=== PATIENT | female | born 1995 | race Caucasian/White ===

== ENCOUNTER 2018-01-09 09:52 | Day surgery (SDC) | payer MEDICAID, SELFPAY ==
[2018-01-09 10:28] VITALS: BP 134/62; PULSE 87; RESP 14; TEMP 36.9; O2SAT 99; BMI 29.9
[2018-01-09 10:53] LABS: Hematocrit 33.8 % (37-47); Hemoglobin 11.4 g/dl (12.0-15.0); Mean Corp Hgb Conc 33.7 g/gl (32-36); Mean Corpuscular Hgb 30.3 pg (27.0-32.0); Mean Corpuscular Volume 89.9 fL (81-99); Mean Platelet Vol. 9.5 fl (6.2-12.0); Platelet Count 266 K/mm3 (150-450); RBC Distribution Width CV 12.6 % (11.6-14.6); RBC Distribution Width SD 40.6 fl (35.1-43.9); Red Blood Count 3.76 M/mm3 (4.2-5.4); White Blood Count 6.9 K/mm3 (4.4-11.0)
[2018-01-09 10:56] LABS: Scan Indicated on CBC? Y/N NO
[2018-01-09] MEDS: Doxycycline 100 MG CAPSULE PO (11:09)
--- NOTE | 2018-01-09 12:00 | POC_PTH ---
PATIENT: GRIFFIN COLÓN LOC: [facility] [place] U#:[id number] AGE/SX: 22/ ROOM: RE01/09/[address]: Dr. Veronica Brooks, MDDOB: 1995 BED: DIS: 01/09/2018 SPEC #: [id number] RECD: 01/09/18 13:07 STATUS: ARMIDA ALEXANDRA #: [id number] JOSE F: 01/09/18 12:[address]: Veronica Brooks DEPT: SURGICAL PATHOLOGY RECD BY: Jones Dennis ENTERED: 01/09/18 14:03 SP TYPE: PROD CONC OTHR DR: No Primary Care Phys Tissues: Product of conception, NOS Procedures: Surgery Specimen Level IV HEADER OPERATION: Dilation and curettage, suction PRE-OP DIAGNOSIS: Molar , retained products TISSUE SUBMITTED: Products of conception MICROSCOPIC DIAGNOSIS Endometrium, curettings: Chorionic villi with autolytic changes consistent with products of conception. Fragments of endometrium with mild chronic endometritis. AM:tacos 01/10/18 MICROSCOPIC DESCRIPTION Slides are reviewed. GROSS DESCRIPTION Received in fixative is one container labeled with the patient's name and designated products of conception. The specimen consists of multiple irregular fragments of pink-red soft tissue mixed with mucoid tissue that in aggregate measure 3 x 2.5 x 0.3 cm. The entire specimen is submitted in one cassette. / SJ:tacos 01/09/18 TC:3 CPT: 17887
--- NOTE | 2018-01-09 12:32 | PCM.OP.BLANK ---
Operative Report Date of Procedure: 01/09/18 Surgeon: Dr. Veronica Brooks Stage Electrician Helper: None Pre op Diagnosis: MOLAR , RETAINED POC Post OP Diagnosis: same Surgery Performed: Hysteroscopy, D&C Findings: small amount of tissue evacuated using 7mm suction catheter Complications: none EBL: minimal Operative Note: After informed consent was obtained patient was taken to OR and placed in supine position. Anesthesia was given. patient was placed in yellow fin stirrups and prepped and draped in normal sterile fashion. bladder was drained with straight catheter with approximately 100 of clear yellow urine expelled. Exam under anesthesia reviewed normal sized uterus with no adnexal masses uterus anteverted. Weighted speculum placed in posterior fornix of vaginal, single tooth tenaculum was used to gently grasped anterior lip of cervix. Cervix was gently dilated in an incremental fashion. Was adequate dilation was achieved the 7mm suction catheter was used. Small amount of tissue removed without complication. at this time a very gentle sharp curettage was performed which yielded no other tissue. The tissue was then sent to pathology for examination. no complications. At this time procedure was deemed complete and successful. Tenaculum removed, speculum removed. Good hemostasis appreciated. Vaginal sweep was negative. Instrument and lap count correct x 2. I anticipate normal postoperative course.
--- NOTE | 2018-01-09 12:35 | PCM.DC.D&C ---
Discharge Diet: No Restrictions Discharge Activity: Return to Normal Activity, May Shower, May Take a Tub Bath - in 2 weeks. Allergies/Adverse Reactions: Allergies No Known Allergies Allergy (Verified 01/09/18 10:20) Medications to take at Discharge Melatonin 3 mg PO QHS 01/09/18 Primary Care Physician: Care Physician,No Primary [Primary Care Provider] -
[2018-01-09 12:42] VITALS: BP 116/78; BP 134/62; PULSE 96; RESP 14; TEMP 36.9; O2SAT 96
[2018-01-09 12:47] VITALS: BP 106/72; BP 134/62; PULSE 82; RESP 16; O2SAT 99
[2018-01-09 12:52] VITALS: BP 117/68; BP 134/62; PULSE 82; RESP 16; O2SAT 95
[2018-01-09 12:57] VITALS: BP 111/74; BP 123/74; BP 134/62; PULSE 75; PULSE 76; RESP 16; TEMP 36.6; O2SAT 95
[2018-01-09 14:22] VITALS: BP 134/62
== END 2018-01-09 14:35 | disposition home or self-care (01) ==
LOC: SDC 10:01 → AC 10:03
PROVIDERS: Visit Provider Obstetrics & Gynecology
PROC: (CPT 59812; principal; 2018-01-09 11:45)
DX: O02.0 Blighted ovum and nonhydatidiform mole (principal); O08.1 Delayed or excessive hemorrhage following ectopic and molar pregnancy; O08.0 Genital tract and pelvic infection following ectopic and molar pregnancy; N71.1 Chronic inflammatory disease of uterus; Z87.891 Personal history of nicotine dependence
CPT/HCPCS: 01965; 59812; 85027; 88305; J3010; J7120; J2405

== ENCOUNTER 2019-03-11 11:50 | Outpatient (CLI) | payer MEDICAID, SELFPAY ==
[2019-03-11] MEDS: Lactated Ringers 1,000 ML 999 ML IV (12:00)
[2019-03-11 12:18] VITALS: BMI 32.5
[2019-03-11] MEDS: Ondansetron 4 MG/2 ML Vial IV (12:44)
--- NOTE | 2019-03-14 07:51 | OB.TRI.NOTE ---
- Problem List (1) 36 weeks gestation of Status: Acute (2) Nausea & vomiting Status: Acute (3) Diarrhea Status: Acute History of Present Illness Date of Service: 03/11/19 Was patient seen by the physician?: No Reason For Visit: N/V/D Date of Service: 03/11/19 Final BUNNY: 04/12/19 Gestational age: 35 Weeks and 6 Days History of Present Illness: who presents at 36w4d with nausea, vomiting, diarrhea. +Sick contacts with GI gastroenteritis. No OB complaints Allergies No Known Allergies Allergy (Verified 01/09/18 10:20) NST - FHR Rate Baby A Baseline: 135 Variability:: Moderate Accelerations:: 15 x 15 Decelerations:: None - Patient was sitting up with emesis 12:00 and 12:10 NST Reactive:: Yes FHR Category:: Category I Uterine Activity:: Quiet Impression/Plan NST reactive Patient give IV Zofran and 1 L IVF bolus. Pt feeling improved. Discharged home with Zofran prn
== END 2019-03-11 13:39 | disposition home or self-care (01) ==
LOC: WPOUT 12:07 → WP 03-12 10:48
PROVIDERS: Visit Provider Obstetrics & Gynecology
DX: O21.2 Late vomiting of pregnancy (principal); O99.89 Other specified diseases and conditions complicating pregnancy, childbirth and the puerperium; R19.7 Diarrhea, unspecified; Z3A.36 36 weeks gestation of pregnancy
CPT/HCPCS: 96361; 96374; 59025; 59050; 99218; J7120; G0378; J2405

== ENCOUNTER 2019-03-28 06:52 | Inpatient (IN) | payer MEDICAID, SELFPAY ==
[2019-03-28 07:49] VITALS: BMI 33.5
[2019-03-28] MEDS: Lactated Ringers 1,000 ML 50 ML IV ×4 (08:10→20:28)
[2019-03-28] MEDS: Oxytocin 30 units/NS 500 ml 30 UNITS/500 ML IV.SOLN IV (08:19)
[2019-03-28] MEDS: 0.9% Normal Saline 100 ML IV.SOLN. INTRA-UTER (08:20)
[2019-03-28 08:23] LABS: Absolute Lymphocyte Count 2.37 X10^3/ul (0.83-4.51); Absolute Neutrophil Count 4.7 X10^3/uL (2.0-7.7); Basophil# 0.01 X10^3/uL; Basophil% 0.1 % (0-1); Eosinophil# 0.14 X10^3/uL; Eosinophils% 1.8 % (0-5); Hematocrit 30.4 % (37-47); Hemoglobin 10.4 g/dl (12.0-15.0); Lymphocyte # 2.37 X10^3/ul (4.0); Lymphocyte % 29.8 % (19-41); Mean Corp Hgb Conc 34.2 g/gl (32-36); Mean Corpuscular Hgb 30.3 pg (27.0-32.0); Mean Corpuscular Volume 88.6 fL (81-99); Mean Platelet Vol. 11.3 fl (6.2-12.0); Monocyte# 0.72 X10^3/uL; Monocyte% 9.1 % (0-10); Neutrophil # 4.68 X10^3/uL (2.7-7.7); Neutrophil % 58.8 % (47-70); Platelet Count 219 K/mm3 (150-450); RBC Distribution Width CV 13.1 % (11.6-14.6); RBC Distribution Width SD 39.8 fl (35.1-43.9); Red Blood Count 3.43 M/mm3 (4.2-5.4)
[2019-03-28 08:25] LABS: POSITIVE COUNT NO; POSITIVE DIFFERENTIAL NO; POSITIVE MORPHOLOGY NO
--- NOTE | 2019-03-28 08:35 | PCM.HP.OB ---
- Problem List (1) Encounter for induction of labor Status: Acute (2) History of molar Status: Acute (3) History of pre-eclampsia Status: Acute (4) Obesity affecting Status: Acute History Date of Admission: 03/28/19 Final BUNNY: 04/04/19 Gestational age: 39 Weeks and 0 Days History of this : This is a 23 year-old, G [6], P [3113], at 39 weeks gestational age. Presents for elective induction of labor due to maternal discomfort. No signs of labor upon admission. Allergies No Known Allergies Allergy (Verified 03/28/19 07:50) Home Medications: Home Medications Gummies 2 tab PO DAILY 03/28/19 Smoking Status: Former smoker Alcohol: None Heart Tracin, moderate variability, accels, no decels, Category 1 TOCO Analysis: No contractions. History Past Pregnancies: Past Pregnancies Delivery Date Name GA/Weeks Outcome Route Weight Infant Gender Labor Length Anesthesia Delivery Location Provider FOB Labs: GBS negative HIV negative 1hr GCT 112 normal Urine tox screen negative RPR negative Rubella immune HBsAG negative A positive GC/CT negative Review of Systems Constitutional: Denies: Chills, Fever, Weight Change Eyes: Denies: Blurred vision Cardiovascular: Denies: Chest Pain, Palpitations Respiratory: Denies: Cough, Shortness of breath at rest, Sputum production Gastrointestinal: Denies: Abdominal Pain, Nausea, Vomiting Genitourinary: Denies: Dysuria Psychiatric: Denies: Anxiety, Depression, Homicidal Ideations, Suicidal Ideations Physical Exam General: Alert, Oriented x3, No apparent distress HEENT: Atraumatic, Normocephalic Cardiovascular: Regular rate, Regular Rhythm, No murmurs Lungs: Clear to auscultation, Normal air movement, No rhonchi, No wheeze Abdomen: Bowel Sounds Present, Gravid Extremities:: No edema Neurological: Negative for: Deep Tendon Reflexes 2+/4 and Symmetrical, Clonus EXERCISE PHYSIOLOGY PROFESSOR: Normal external genitalia Estimated gestational size: Appropriate for gestational size Presentation: Cephalic Cervix Dilation (cm): 2 - Latex free mcmanus catheter inserted into cervical os without complications. Instilled with 30 ml of NS Station: -1 Effacement (%): 70 Assessment/Plan All Active Problems 36 weeks gestation of (Acute) Nausea & vomiting (Acute) Diarrhea (Acute) Encounter for induction of labor (Acute) History of molar (Acute) History of pre-eclampsia (Acute) Obesity affecting (Acute) This is a 23 year-old, G [6], P [1443], at 39 weeks gestational age for induction of labor A:Category 1 FHT P: 1) Admit to L&D. IV and routine labs 2) Continuous EFM 3) Mcmanus catheter for cervical ripening. Pitocin per policy 4) collaborative physician. 5) Planning epidural for pain management.
--- NOTE | 2019-03-28 08:39 | HP.PCM_ITS ---
- Problem List (1) Encounter for induction of labor Status: Acute (2) History of molar Status: Acute (3) History of pre-eclampsia Status: Acute (4) Obesity affecting Status: Acute History Date of Admission: 03/28/19 Final BUNNY: 04/04/19 Gestational age: 39 Weeks and 0 Days History of this : This is a 23 year-old, G [6], P [3113], at 39 weeks gestational age. Presents for elective induction of labor due to maternal discomfort. No signs of labor upon admission. Allergies No Known Allergies Allergy (Verified 03/28/19 07:50) Home Medications: Home Medications Gummies 2 tab PO DAILY 03/28/19 Smoking Status: Former smoker Alcohol: None Heart Tracin, moderate variability, accels, no decels, Category 1 TOCO Analysis: No contractions. History Past Pregnancies: Past Pregnancies Delivery Date Name GA/Weeks Outcome Route Weight Infant Gender Labor Length Anesthesia Delivery Location Provider FOB Labs: GBS negative HIV negative 1hr GCT 112 normal Urine tox screen negative RPR negative Rubella immune HBsAG negative A positive GC/CT negative Review of Systems Constitutional: Denies: Chills, Fever, Weight Change Eyes: Denies: Blurred vision Cardiovascular: Denies: Chest Pain, Palpitations Respiratory: Denies: Cough, Shortness of breath at rest, Sputum production Gastrointestinal: Denies: Abdominal Pain, Nausea, Vomiting Genitourinary: Denies: Dysuria Psychiatric: Denies: Anxiety, Depression, Homicidal Ideations, Suicidal Ideations Physical Exam General: Alert, Oriented x3, No apparent distress HEENT: Atraumatic, Normocephalic Cardiovascular: Regular rate, Regular Rhythm, No murmurs Lungs: Clear to auscultation, Normal air movement, No rhonchi, No wheeze Abdomen: Bowel Sounds Present, Gravid Extremities:: No edema Neurological: Negative for: Deep Tendon Reflexes 2+/4 and Symmetrical, Clonus SALESFORCE SPECIALIST: Normal external genitalia Estimated gestational size: Appropriate for gestational size Presentation: Cephalic Cervix Dilation (cm): 2 - Latex free mcmanus catheter inserted into cervical os without complications. Instilled with 30 ml of NS Station: -1 Effacement (%): 70 Assessment/Plan All Active Problems 36 weeks gestation of (Acute) Nausea & vomiting (Acute) Diarrhea (Acute) Encounter for induction of labor (Acute) History of molar (Acute) History of pre-eclampsia (Acute) Obesity affecting (Acute) This is a 23 year-old, G [6], P [0413], at 39 weeks gestational age for induction of labor A:Category 1 FHT P: 1) Admit to L&D. IV and routine labs 2) Continuous EFM 3) Mcmanus catheter for cervical ripening. Pitocin per policy 4) collaborative physician. 5) Planning epidural for pain management.
--- NOTE | 2019-03-28 12:34 | PCM.PN.OB ---
Patient Problems: Active and Suspected Problems Encounter for induction of labor (Acute) History of molar (Acute) History of pre-eclampsia (Acute) Obesity affecting (Acute) Subjective: Doing well per patient and nursing staff. Up on birthing ball, cramping with contractions. Objective: FHT 135, moderate variability, accels, no decels TOCO: every 3-5 minutes, lasting 30-40 seconds, moderate per nursing. Difficulty tracing uterine contractions. Cervical exam: 5/80%/-1. AROM for small amount of clear fluid. IUPC placed without difficult. Blood filled IUPC, will flush and monitor. Atraumatic insertion, no resistance felt and inserted easily. - Physical Exam Weight: 208 lb Body Mass Index (BMI) 33.5 Intake and Output for Last 24 Hours 03/26/19 03/27/19 03/28/19 23:59 23:59 23:59 Intake Total 811 / 811 Output Total 900 / 900 Balance -89 / -89 Laboratory Tests Past 24 Hrs 03/28/19 03/28/19 08:10 08:10 WBC 8.0 RBC 3.43 L Hgb 10.4 L Hct 30.4 L MCV 88.6 MCH 30.3 MCHC 34.2 RDW 13.1 RDW Differential 39.8 Plt Count 219 MPV 11.3 Immature Gran % (Auto) 0.400 Neut % (Auto) 58.8 Lymph % (Auto) 29.8 [place] % (Auto) 9.1 Eos % (Auto) 1.8 Baso % (Auto) 0.1 Absolute Neuts (auto) 4.7 Absolute Lymphs (auto) 2.37 Total Counted Not Reportable Blood Type A POSITIVE Antibody Screen NEGATIVE Medical Necessity - Tobacco Use Smoking Status: Former smoker Assessment/Plan All Active Problems 36 weeks gestation of (Acute) Nausea & vomiting (Acute) Diarrhea (Acute) Encounter for induction of labor (Acute) History of molar (Acute) History of pre-eclampsia (Acute) Obesity affecting (Acute) A:Induction of labor, progressing Category 1 FHT P: 1) Continue positional changes 2) Planning epidural for pain management 3) Continue with pitocin induction. If vaginal bleeding to call. IUPC to be flushed. 4) notified of patient status and plan of care.
[2019-03-28] MEDS: Nalbuphine 10 MG/ML Ampul IV (13:07)
[2019-03-28] MEDS: fentaNYL-bupivacaine (epidural) 100 ML BAG EPIDURAL ×2 (14:31→20:29)
--- NOTE | 2019-03-28 19:23 | PN.OBGYN_ITS ---
Patient Problems: Active and Suspected Problems Encounter for induction of labor (Acute) History of molar (Acute) History of pre-eclampsia (Acute) Obesity affecting (Acute) Subjective: Resting in bed with peanut ball. Comfortable with epidural, feeling abdominal pressure with contractions. Objective: FHT 140, moderate variability, accels, variable decels with contractions. TOCO: every 2 minutes, strong, MVU 150. Pitocin at 20 Cervix 7cm/80%/0 - Physical Exam Weight: 208 lb Body Mass Index (BMI) 33.5 Intake and Output for Last 24 Hours 03/26/19 03/27/19 03/28/19 23:59 23:59 23:59 Intake Total 3391 / 3391 Output Total 1900 / 1900 Balance 1491 / 1491 Laboratory Tests Past 24 Hrs 03/28/19 03/28/19 08:10 08:10 WBC 8.0 RBC 3.43 L Hgb 10.4 L Hct 30.4 L MCV 88.6 MCH 30.3 MCHC 34.2 RDW 13.1 RDW Differential 39.8 Plt Count 219 MPV 11.3 Immature Gran % (Auto) 0.400 Neut % (Auto) 58.8 Lymph % (Auto) 29.8 [place] % (Auto) 9.1 Eos % (Auto) 1.8 Baso % (Auto) 0.1 Absolute Neuts (auto) 4.7 Absolute Lymphs (auto) 2.37 Total Counted Not Reportable Blood Type A POSITIVE Antibody Screen NEGATIVE Medical Necessity - Tobacco Use Smoking Status: Former smoker Assessment/Plan All Active Problems 36 weeks gestation of (Acute) Nausea & vomiting (Acute) Diarrhea (Acute) Encounter for induction of labor (Acute) History of molar (Acute) History of pre-eclampsia (Acute) Obesity affecting (Acute) A:Active Labor, progressing Category 2 FHT P: 1) Continue with active management 2) Positional changes 3) notified of patient status
[2019-03-28] MEDS: 0.9% Saline Lock 10 ML Syringe IV (19:44)
[2019-03-28] MEDS: Ondansetron 4 MG/2 ML Vial IV (19:44)
[2019-03-28] MEDS: 0.9% Normal Saline 1,000 ML 200 ML IV (20:29)
[2019-03-28] MEDS: Oxytocin 30 units/NS 500 ml 30 UNITS/500 ML IV.SOLN 334 UNITS IV (22:52)
--- NOTE | 2019-03-28 22:57 | PCM.OPRPT ---
Problem List (1) Encounter for induction of labor Status: Acute (2) History of molar Status: Acute (3) History of pre-eclampsia Status: Acute (4) Obesity affecting Status: Acute (5) Vaginal delivery Status: Acute Vaginal Delivery Maternal Presentation: Elective Induction Method of Induction: Pitocin, [place] Bulb Amniotic Membrane Rupture Type: Artificial Amniotic Fluid Description: Clear Final BUNNY: 04/04/19 Gestational age: 39 Weeks and 0 Days Date of Procedure: 03/28/19 Pre-Operative Diagnosis: Elective Induction of labor at Term Post-Operative Diagnosis: Surgery/ Procedure Performed: Spontaneous Vaginal Delivery Type of Anesthesia: Epidural Description of Procedure: Progressed to complete with urge to push. of viable female over intact perineum. head delivered and body forthcoming. Placed on maternal abdomen, strong cry. Mouth and nares suctioned for secretions. APGARS, 8,9 with weight pending. Placenta delivered with maternal effort, intact via ever, 3 vessel cord. Pitocin started for active 3rd stage management. Perineum inspected and intact, no repair needed. Fundus massaged, firm. EBL 300ml. Mom and baby stable. Family bonding well. notified of delivery. Presentation: Vertex Placental Delivery Description: Spontaneous Placenta Disposition: [facility] Cord Vessel Description: 3 Vessels Cord Entanglement: None Estimated Blood Loss: 300 ml Infant A gender: Female (1 minute): 8 (5 minute): 9 Episiotomy Description: None Laceration: None Medications given after delivery: IV Pitocin
[2019-03-28] MEDS: Oxytocin 30 units/NS 500 ml 30 UNITS/500 ML IV.SOLN 167 UNITS IV (23:22)
[2019-03-29 03:26] VITALS: BP 116/58; PULSE 82; RESP 15; TEMP 36.9; O2SAT 97
[2019-03-29] MEDS: Ibuprofen 600 MG Tablet PO ×2 (03:45→12:10)
[2019-03-29] MEDS: Acetaminophen 500 MG Tablet 1000 MG PO ×2 (04:48→19:35)
[2019-03-29 10:00] VITALS: BP 118/62; PULSE 77; RESP 16; TEMP 36.6
[2019-03-29 12:18] VITALS: BP 115/57; PULSE 75; RESP 16; TEMP 35.7
--- NOTE | 2019-03-29 12:27 | PCM.PN.OB ---
Patient Problems: Active and Suspected Problems Encounter for induction of labor (Acute) History of molar (Acute) History of pre-eclampsia (Acute) Obesity affecting (Acute) Vaginal delivery (Acute) Subjective: Doing well per patient and nursing staff. Ambulating and taking PO without difficulty. . Denies any increased vaginal bleeding or clots. Pain controlled. Planning D/C home tomorrow. - Physical Exam General: Alert, Oriented x3, Cooperative HEENT: Atraumatic, Normocephalic Neck: Trachea Midline Lungs: Clear to auscultation, Normal air movement, No rhonchi, No wheeze Cardiovascular: Regular rate, Regular Rhythm, No murmurs Abdomen: Bowel Sounds Present, Soft, Non Tender, - - Fundus firm 2 below U Extremities: No edema Psych/Mental Status: Normal Affect, Appropriate Vital Signs Temp Pulse Resp BP Pulse Ox 96.3 F L 75 16 115/57 L 97 03/29/19 12:18 03/29/19 12:18 03/29/19 12:18 03/29/19 12:18 03/29/19 03:26 Oxygen Delivery Method Room Air Weight: 208 lb Body Mass Index (BMI) 33.5 Intake and Output for Last 24 Hours 03/27/19 03/28/19 03/29/19 23:59 23:59 23:59 Intake Total 4541 / 4541 Output Total 2200 / 2200 1050 / 1050 Balance 2341 / 2341 -1050 / -1050 Medical Necessity - Tobacco Use Smoking Status: Former smoker Assessment/Plan All Active Problems 36 weeks gestation of (Acute) Nausea & vomiting (Acute) Diarrhea (Acute) Encounter for induction of labor (Acute) History of molar (Acute) History of pre-eclampsia (Acute) Obesity affecting (Acute) Vaginal delivery (Acute) A:PPD #1 P: 1) Routine care 2) Planning D/C home tomorrow 3) support as needed.
[2019-03-29 15:42] VITALS: BP 132/74; PULSE 74; RESP 16; TEMP 36
[2019-03-29 19:36] VITALS: BP 129/82; PULSE 76; RESP 16; TEMP 36.8; O2SAT 97
[2019-03-30] MEDS: Ibuprofen 600 MG Tablet PO (01:41)
[2019-03-30 01:43] VITALS: BP 120/65; PULSE 70; RESP 18; TEMP 37; O2SAT 96
--- NOTE | 2019-03-30 08:27 | DCINST_ITS ---
Discharge Diet: No Restrictions Discharge Activity: Return to Normal Activity, May not drive while taking narcotic pain medications., May Shower May resume sexual activity in: 4-6 weeks Additional Activity Instructions:: Nothing in the vagina for 4-6 weeks. You may return to work/school in 6 weeks. Call your doctor if your incision/area has: Continuous Slow Oozing, Sudden Increased Bleeding, Increased Pain/ Swelling, Increased Redness, Foul Smelling Discharge Call your doctor if you observe: Fever of 101 or Higher, Inability to urinate, Inability to have a bowel movement, Using more than one pad per hour Additional Instructions: If you experience any of the following, contact your healthcare provider. * Bleeding that soaks a pad every hour for 2 hours * Fever 100.4 or higher * Unrelieved incision or abdominal pain * Swelling, redness, discharge or bleeding from your incision or episiotomy site * Your incision begins to separate * Problems urinating (including inability to urinate or burning while urinating). * Visual changes * Severe headache * Flu-like symptoms * Pain or redness in one of both of your breasts * Pain, warmth, tenderness or swelling in your legs, especially the calf area * Frequent nausea and vomiting * Symptoms of depression or anxiety If you experience any of the following, call 911 or go to the nearest Emergency Room. * Chest pain * Problems breathing * Seizure activity * Partial or complete paralysis of a body part, slurred speech, weakness or drooping of the face, or a sudden inability to walk or hold your balance Allergies/Adverse Reactions: Allergies No Known Allergies Allergy (Verified 03/28/19 07:50) Medications to take at Discharge Gummies 2 tab PO DAILY 03/28/19 Please Follow Up With: Dian Messina CNM When: Call to make an appointment with your provider in 2 weeks and in 6 weeks . You do not need to receive any follow-up bloodwork to follow hormone levels at this time. Primary Care Physician: Care Physician,No Primary [Primary Care Provider] - Test Results: Test results from this visit will be discussed in further detail at your follow- up appointment, if applicable. Proposed Discharge Date: 03/30/19
--- NOTE | 2019-03-30 08:28 | PCM.PN.OB ---
Patient Problems: Active and Suspected Problems Encounter for induction of labor (Acute) History of molar (Acute) History of pre-eclampsia (Acute) Obesity affecting (Acute) Vaginal delivery (Acute) Subjective: Patient sitting up in bed reporting no issues at this time. Baby is latching well. Denies VELASQUEZ, dizziness or scotoma. She desires discharge to home today. Objective: VSS, Afebrile A+O x 3, NAD Nipples without cracks or blisters, few ecchymoses noted Abdomen NT x 4 quadrants, FF midline @ 2FB below umbilicus +2/4 reflexes in LE, no edema, negative calf tenderness to palpation scant rubra lochia perineum well approximated - Physical Exam General: Alert, Oriented x3, Cooperative HEENT: Atraumatic, Normocephalic Neck: Supple Lungs: Normal air movement Cardiovascular: Regular rate, No murmurs Abdomen: Soft, Non Tender Extremities: No edema, Capillary Refill Less than 3 Seconds Skin: No rashes, No breakdown Musculoskeletal: No Tenderness to Palpation of Joints or Extremities Neurological: Cranial nerves II-XII grossly intact Psych/Mental Status: Normal Affect, Appropriate Vital Signs Temp Pulse Resp BP Pulse Ox 98.6 F 70 18 120/65 96 03/30/19 01:43 03/30/19 01:43 03/30/19 01:43 03/30/19 01:43 03/30/19 01:43 Oxygen Delivery Method Room Air Weight: 208 lb Body Mass Index (BMI) 33.5 Intake and Output for Last 24 Hours 03/28/19 03/29/19 03/30/19 23:59 23:59 23:59 Intake Total 4541 / 4541 Output Total 2200 / 2200 1050 / 1050 Balance 2341 / 2341 -1050 / -1050 Medical Necessity - Tobacco Use Smoking Status: Former smoker Assessment/Plan All Active Problems 36 weeks gestation of (Acute) Nausea & vomiting (Acute) Diarrhea (Acute) Encounter for induction of labor (Acute) History of molar (Acute) History of pre-eclampsia (Acute) Obesity affecting (Acute) Vaginal delivery (Acute) 23 y/o s/p , PPD #2, Normal P: 1) Discharge to home 2) f/u at 2 and 6 weeks PP to [facility] for visits. Zully Riggs APRN-SRAVANI
[2019-03-30 08:40] VITALS: BP 128/69; PULSE 83; RESP 16; TEMP 36.2
--- NOTE | 2019-03-30 11:34 | CASEMGMT ---
Social Work Assessment Labor and Delivery Unit Date of Referral: 03/30/2019 Time of Referral: 0640 Referred By: Dr. Rizzo Date of Intervention: 03/30/2019 Time of Intervention: 1130 Reason for Referral: maternal history of loss; PPD resources History obtained from: Mother of baby (MOB) Argenis Ray, medical records, and father of baby (FOB) Yonny Thomas. Household composition: MOB, FOB, and three older daughters. Home situation is reported to be safe and adequate. Patient's parent/guardian status: MOB is age 24, and FOB is age 28, have been together for 8 years. MOB now have 4 living children since delivery this admission. Children include: Fre[place] (born 05.31.2012), Munroe (born 01.12.14), Bella (born 02.10.2016), and Gertrudis Thomas (born 03.[birth year].2019). MOB had a partial molar , delivered at 21 weeks, and named that baby Errol. No reports of or indication of any safety concerns or domestic violence; per medical record MOB denies any concerns regarding safety. Medical History: MOB is G6, P3 to 4 live births after of baby palmira Caba this admission. History of one partial molar with triploidy. MOB with history of preeclampsia. Baby Gertrudis delivered at 6 pounds 6 ounces and Apgars 8 and 9 at 1 and 5 minutes of life. Educational Status: JONATHAN is able to read, write, and understand what is written. MOB reports just graduated from a [employer] program and waiting for board approval to take her licensing test. Financial Status: FOB works fulltime as a fork clamp forklift operator on 3rd shift. Supplies: MOB and FOB report to have needed baby supplies including bassinet, crib, clothing, and other needed baby supplies. MOB is breast feeding Gertrudis. Childcare/Caregiver(s): MOB and FOB will be primary caregivers. MOB's mother helps with childcare when both MOB and FOB are working. Transportation: No issues. Programs/Agencies Involved: S for medical. History of WIC and not sure if want to use this service again. Children Services/Legal Issues: None reported or indicated. Behavioral Health Issues: Mental Health History: JONATHAN denies any history of depression or anxiety issues after her other daughters were born. MOB admits to some grief issues after loss of Errol last year. MOB denies any depression or anxiety symptoms prior to . Chart indicates MOB did have some anxiety during this and medication were considered early on, but did not end up being prescribed. MOB reports that kept busy during this with school, which helped MOB not to dwell and worry as much as may have. Substance Use History: MOB had 2 drinks prior to knowledge. No reports or indication of substance use or abuse issues. MOB is a former tobacco smoker. Drug Screens: Maternal drug screen negative on 08.18.2019. Family/Social Stressors: MOB with history of partial molar and delivery at 21 weeks. MOB with closely spaced pregnancies after this loss. MOB also finishing up school during with Gertrudis. FOB admits to depression after the loss of Errol and reports it has just been within the last couple of months that FOB has been feeling better. FOB also switched to a 3rd shift job so that MOB could finish school. Support Systems: FOB, MOB's mother, and FOB's mother are helpful and live in the area. ASSESSMENT: MOB and FOB both cooperative and agreeable to social work visit. MOB with constricted affect overall but did also show change in emotions depending on topic, was able to smile and laugh a few times. MOB tearful when talking about loss of Errol. MOB reports to have positive feelings for baby Gertrudis and is looking forward to returning home today. FOB held Gertrudis during social work visit and was gentle with baby. MOB reports to have needed supplies for baby and to have support at home going. Talked with parents about depression and anxiety, risk factors present and that it is okay to let others know if symptoms do arise. MOB voiced that would let the doctor know if struggling. MOB accepting of packet given on depression anxiety, which includes some online support and resources as well as local counselors that MOB could go to if needed or desired. [facility] resource list also given. MOB declines [facility] referral and is aware of what [facility] provides. PLAN: MOB and baby to home when ready for discharge. Resources given. No other services requested or indicated. -ANIYAH Harris, REESE
== END 2019-03-30 12:45 | disposition home or self-care (01) | DRG 560 ==
PROVIDERS: Obstetrics & Gynecology; Admitting Provider Obstetrics & Gynecology; Referring Provider Obstetrics & Gynecology; Visit Provider Obstetrics & Gynecology
DX: O26.893 Other specified pregnancy related conditions, third trimester (principal); O99.214 Obesity complicating childbirth; Z3A.39 39 weeks gestation of pregnancy; Z37.0 Single live birth; Z87.891 Personal history of nicotine dependence; Z87.59 Personal history of other complications of pregnancy, childbirth and the puerperium
CPT/HCPCS: 59025; 59050; 85025; 86850; 86900; 99218; J7030; J7120; A4216; G0378; J2405